=== PATIENT | male | born 1960 | race Caucasian/White ===

== ENCOUNTER → 2016-05-24 | Outpatient (CLI) | payer MEDICARE ==
--- NOTE | 2016-05-24 13:29 | RADIOLOGY REPORT PS360 ---
US RUQ-(ABD LTD)1ORGAN/QUAD/FU HISTORY: RUQ PAIN ORDERING PHYSICIAN: Parminder Kuhn MD PATIENT AGE: 56 years COMPARISON: None FINDINGS: There is diffuse hepatic steatosis with difficulty in the sonographic penetration of the liver due to the diffuse fatty liver disease. PANCREAS: Poorly demonstrated, no obvious mass LIVER: Diffuse hepatic steatosis with poor through transmission of sound RIGHT KIDNEY: Unremarkable. Normal size and echogenicity. No hydronephrosis GALLBLADDER: No gallstones, gallbladder wall thickening, pericholecystic fluid, or biliary dilatation. There may be a small amount sludge in the gallbladder. IMPRESSION: Somewhat limited study due to diffuse hepatic steatosis. No definite gallstones, ductal dilatation, or gallbladder wall thickening evident. There may be a small amount of sludge in the gallbladder.
--- NOTE | 2016-05-24 13:30 | RADIOLOGY REPORT PS360 ---
[facility] HEPATOBILIARY SCAN HISTORY: RUQ PAIN ORDERING PHYSICIAN: Parminder Kuhn MD PATIENT AGE: 56 years COMPARISON: None DOSE: 8.61 mCi technetium Choletec. FINDINGS: Homogeneous activity is present within the hepatic parenchyma. Activity is present in the gallbladder by 15 minutes. Activity is present in the small bowel by 30 minutes. The gallbladder ejection fraction is calculated to be 74% Gallbladder ejection fraction was performed with a fatty meal. No pain reported with the ingestion of fatty meal. IMPRESSION: Unremarkable hepatobiliary scan and gallbladder ejection fraction. No evidence of common or cystic duct obstruction with normal gallbladder ejection fraction
[2016-05-24 17:05] LABS: BILIRUBIN, INDIRECT 0.22 mg/dL (0-0.9); BUN 28 mg/dL (7-18)
[2016-05-24 17:06] LABS: GFR (ESTIMATED) 45 ML/MIN (>60)
[2016-05-26 07:40] LABS: HBsAg Screen Negative (Negative); Hep A Ab, IgM Negative (Negative); Hep B Core Ab, IgM Negative (Negative); Hep C Virus Ab <0.1 (0.0-0.9)
== END ==
LOC: LAB 08:11 → RAD 08:11
PROVIDERS: Surgery
DX: R10.11 Right upper quadrant pain (principal)
CPT/HCPCS: A9537